=== PATIENT | male | born 1945 | race Caucasian/White ===

== ENCOUNTER 2018-08-26 12:16 | Inpatient (IN) | payer MEDICARE, OTHER ==
[~2018-08-26] VITALS: Ht 172.7 cm; Wt 55.7 kg
[2018-08-30 06:27] VITALS: BP 133/74
== END 2018-08-30 14:58 | DRG 871 ==
LOC: ED 14:28 → EDIP 14:29 → ED 14:41 → 4NOR 16:15 → 4WST 17:09
PROVIDERS: ADMIT Hospitalist; ATTEND Hospitalist
DX: A41.9 Sepsis, unspecified organism (principal); J69.0 Pneumonitis due to inhalation of food and vomit; S72.141A Displaced intertrochanteric fracture of right femur, initial encounter for closed fracture; J96.21 Acute and chronic respiratory failure with hypoxia; M97.01XA Periprosthetic fracture around internal prosthetic right hip joint, initial encounter; F10.239 Alcohol dependence with withdrawal, unspecified; E46 Unspecified protein-calorie malnutrition; J44.0 Chronic obstructive pulmonary disease with (acute) lower respiratory infection; E87.2 Acidosis; Z99.81 Dependence on supplemental oxygen; Y90.3 Blood alcohol level of 60-79 mg/100 ml; Z66 Do not resuscitate; R62.7 Adult failure to thrive; R29.6 Repeated falls; N40.0 Benign prostatic hyperplasia without lower urinary tract symptoms; E87.5 Hyperkalemia; E53.8 Deficiency of other specified B group vitamins; I10 Essential (primary) hypertension; H35.30 Unspecified macular degeneration; F41.9 Anxiety disorder, unspecified; D53.9 Nutritional anemia, unspecified; Z87.891 Personal history of nicotine dependence; Z79.52 Long term (current) use of systemic steroids; Z79.4 Long term (current) use of insulin; Z83.3 Family history of diabetes mellitus; Z88.0 Allergy status to penicillin
CPT/HCPCS: 36415; 36600; 70450; 71045; 71250; 71275; 74230; 80048; 80053; 80307; 81003; 82140; 82306; 82550; 82607; 82803; 83036; 83605; 83735; 83880; 84100; 84134; 84145; 84439; 84443; 84484; 85025; 85610; 87040; 90715; 93005; 93306; 94640; G0378; J0696; J1644; J3411; J3475; J3480; J7042; J7060; J7620; Q9967; J0295; J2060; J7030; J7040